=== PATIENT | male | born 1975 | race Caucasian/White ===

== ENCOUNTER 2016-06-25 17:13 | Emergency (ER) | payer MEDICAID ==
[2016-06-25 17:33] VITALS: BP 175/104
--- NOTE | 2016-06-25 18:19 | EDM.PDOC ---
ED HPI GENERAL MEDICAL PROBLEM - General Chief Complaint: Cardiovascular Problem Stated Complaint: SWOLLEN LEGS, UNABLE TO TAKE FULL BREATH Time Seen by Provider: 06/25/16 18:06 Source of Information: Reports: Patient History Limitations: Reports: No Limitations - History of Present Illness INITIAL COMMENTS - FREE TEXT/NARRATIVE: Patient is a 40-year-old male who presents to the ED complaining of increased swelling to his lower legs, distention to his abdomen, and inability to take a deep breath. States last night legs were fine. Awoke this with swollen ankles that have mildly decreased throughout the course of the day. Patient has been elevating his legs when able to reduce swelling. States he has no history of swelling like this previously. Since the onset he has some difficulty with taking a deep breath due to distention noted to his abdomen. He is mildly short of breath with exertion. He does have some mild chest discomfort along the upper left sternal border described as sharp, intermittent, worsened with taking a deep breath or palpation. He is mildly dizzy with ambulation but notes no syncope or presyncopal episodes. Denies any history of PE/DVT, orthopnea, PND , palpitations, nausea/vomiting, hemoptysis, nausea/vomiting, diaphoresis, lightheadedness, Alupent, dysuria, calf pain, or any additional complaints. Chest pain is 1/10. Patient has a past medical history of hypertension and anxiety. Current medications include: Verapamil 240 mg every day, and citalopram. Surgical history carpal tunnel syndrome, cholecystectomy. Patient has a long smoking history and has recently decreased 7-8 cigarettes per day. Denies any alcohol or recreational drug use. Patient has a history of first degree relative with heart disease. Patient denies diabetes or hypercholesteremia Onset: Gradual Duration: Constant, Improving Location: Reports: Other (see HPI) Severity: Mild Bilateral Leg Pain Score (Numeric/FACES): 5 - Related Data Allergies Allergy/AdvReac Type Severity Reaction Status Date / Time No Known Allergies Allergy Verified 06/25/16 17:29 Home Meds: Home Meds Citalopram [Celexa] 20 mg PO DAILY 10/30/15 [History] Verapamil HCl [Verapamil ER] 240 mg PO BEDTIME 06/25/16 [History] Past Medical History Cardiovascular History: Reports: Hypertension Psychiatric History: Reports: Anxiety, Depression - Past Surgical History GI Surgical History: Reports: Cholecystectomy Musculoskeletal Surgical History: Reports: Carpal Tunnel Social & Family History - Tobacco Use Smoking Status *Q: Current Every Day Smoker Years of Tobacco use: 20 Packs/Tins Daily: 0.5 - Caffeine Use Caffeine Use: Reports: None - Alcohol Use Days Per Week of Alcohol Use: 0 - Recreational Drug Use Recreational Drug Use: No - Living Situation & Occupation Living situation: Reports: , with Spouse, with Family Occupation: Employed ED ROS GENERAL - Review of Systems Review Of Systems: ROS reveals no pertinent complaints other than HPI. ED EXAM, GENERAL - Physical Exam Exam: See Below Exam Limited By: No Limitations General Appearance: Alert, WD/WN, No Apparent Distress Ears: Hearing Grossly Normal Nose: Normal Inspection Throat/Mouth: Normal Voice, No Airway Compromise Neck: Normal Inspection, Supple, Other (no JVD) Respiratory/Chest: No Respiratory Distress, Lungs Clear, Normal Breath Sounds, No Accessory Muscle Use, Chest Non-Tender Cardiovascular: Normal Peripheral Pulses, Regular Rate, Rhythm, No Murmur Peripheral Pulses: 2+: Radial (L), Radial (R), Posterior Tibial (L), Posterior Tibial (R) GI/Abdominal: Normal Bowel Sounds, Soft, Non-Tender, No Organomegaly, No Abnormal Bruit, No Mass, Other (mildly distended) Back Exam: Normal Inspection Extremities: Normal Inspection, Non-Tender, Normal Capillary Refill, Pedal Edema (1+ to the lower half of the lower leg bilaterally) Neurological: Alert, Oriented, CN II-XII Intact, Normal Cognition, No Motor/ Sensory Deficits Psychiatric: Normal Affect, Normal Mood Skin Exam: Warm, Dry, Intact, Normal Color Course - Vital Signs Last Recorded V/S: Last Vital Signs Temp 98.0 F 06/25/16 17:30 Pulse 72 06/25/16 17:30 Resp 20 06/25/16 17:30 BP 175/104 H 06/25/16 17:30 Pulse Ox 98 06/25/16 17:30 - Orders/Labs/Meds Orders: Active Orders 24 hr Category Date Time Status EKG Documentation Completion [RC] STAT Care 06/25/16 18:21 Active Peripheral IV Care [RC] . DIRECTED Care 06/25/16 18:21 Active Chest 2V [CR] Stat Exams 06/25/16 18:21 Taken Peripheral IV Insertion Adult [OM.PC] Stat Oth 06/25/16 18:21 Ordered Labs: Laboratory Tests 06/25/16 06/25/16 06/25/16 Range/Units 18:01 18:01 18:01 WBC 8.58 (4.23-9.07) K/mm3 RBC 3.94 L (4.63-6.08) M/mm3 Hgb 12.6 L (13.7-17.5) gm/L Hct 37.1 L (40.1-51.0) % MCV 94.2 H (79.0-92.2) fl MCH 32.0 (25.7-32.2) pg MCHC 34.0 (32.2-35.5) g/dl RDW Std Deviation 43.4 (35.1-43.9) fL Plt Count 276 (163-337) K/mm3 MPV 9.5 (9.4-12.3) fl Neut % (Auto) 52.8 (34.0-67.9) % Lymph % (Auto) 31.9 (21.8-53.1) % [place] % (Auto) 10.5 (5.3-12.2) % Eos % (Auto) 4.5 (0.8-7.0) Baso % (Auto) 0.2 (0.1-1.2) % Neut # (Auto) 4.52 (1.78-5.38) K/mm3 Lymph # (Auto) 2.74 (1.32-3.57) K/mm3 [place] # (Auto) 0.90 H (0.30-0.82) K/mm3 Eos # (Auto) 0.39 (0.04-0.54) K/mm3 Baso # (Auto) 0.02 (0.01-0.08) K/mm3 D-Dimer, Quantitative (0.19-0.59) mg/L Sodium 140 (136-145) mEq/L Potassium 3.8 (3.5-5.1) mEq/L Chloride 103 (98-107) mEq/L Carbon Dioxide 27 (21-32) mEq/L Anion Gap 13.8 (5-15) BUN 15 (7-18) mg/dL Creatinine 0.9 (0.7-1.3) mg/dL Est Cr Clr Drug Dosing 131.71 mL/min Estimated GFR (MDRD) > 60 (>60) mL/min BUN/Creatinine Ratio 16.7 (14-18) Glucose 95 (74-106) mg/dL Calcium 8.3 L (8.5-10.1) mg/dL Total Bilirubin 0.2 (0.2-1.0) mg/dL AST 17 (15-37) U/L ALT 30 (16-63) U/L Alkaline Phosphatase 79 (46-116) U/L Troponin I < 0.017 (0.00-0.056) ng/mL B-Natriuretic Peptide < 15 (0-100) pg/mL Total Protein 6.6 (6.4-8.2) g/dl Albumin 3.6 (3.4-5.0) g/dl Globulin 3.0 gm/dL Albumin/Globulin Ratio 1.2 (1-2) TSH 3rd Generation 1.052 (0.358-3.74) uIU/mL Urine Color (Yellow) Urine Appearance (Clear) Urine pH (5.0-8.0) Ur Specific [place] (1.005-1.030) Urine Protein (Negative) Urine Glucose (UA) (Negative) Urine Ketones (Negative) Urine Occult Blood (Negative) Urine Nitrite (Negative) Urine Bilirubin (Negative) Urine Urobilinogen (0.2-1.0) Ur Leukocyte Esterase (Negative) Urine RBC (0-5) /hpf Urine WBC (0-5) /hpf Ur Epithelial Cells Ur Squamous Epith Cells (0-5) /hpf Urine Bacteria (FEW) /hpf Urine Mucus (FEW) /hpf 06/25/16 06/25/16 Range/Units 18:31 18:36 WBC (4.23-9.07) K/mm3 RBC (4.63-6.08) M/mm3 Hgb (13.7-17.5) gm/L Hct (40.1-51.0) % MCV (79.0-92.2) fl MCH (25.7-32.2) pg MCHC (32.2-35.5) g/dl RDW Std Deviation (35.1-43.9) fL Plt Count (163-337) K/mm3 MPV (9.4-12.3) fl Neut % (Auto) (34.0-67.9) % Lymph % (Auto) (21.8-53.1) % [place] % (Auto) (5.3-12.2) % Eos % (Auto) (0.8-7.0) Baso % (Auto) (0.1-1.2) % Neut # (Auto) (1.78-5.38) K/mm3 Lymph # (Auto) (1.32-3.57) K/mm3 [place] # (Auto) (0.30-0.82) K/mm3 Eos # (Auto) (0.04-0.54) K/mm3 Baso # (Auto) (0.01-0.08) K/mm3 D-Dimer, Quantitative 0.41 (0.19-0.59) mg/L Sodium (136-145) mEq/L Potassium (3.5-5.1) mEq/L Chloride (98-107) mEq/L Carbon Dioxide (21-32) mEq/L Anion Gap (5-15) BUN (7-18) mg/dL Creatinine (0.7-1.3) mg/dL Est Cr Clr Drug Dosing mL/min Estimated GFR (MDRD) (>60) mL/min BUN/Creatinine Ratio (14-18) Glucose (74-106) mg/dL Calcium (8.5-10.1) mg/dL Total Bilirubin (0.2-1.0) mg/dL AST (15-37) U/L ALT (16-63) U/L Alkaline Phosphatase (46-116) U/L Troponin I (0.00-0.056) ng/mL B-Natriuretic Peptide (0-100) pg/mL Total Protein (6.4-8.2) g/dl Albumin (3.4-5.0) g/dl Globulin gm/dL Albumin/Globulin Ratio (1-2) TSH 3rd Generation (0.358-3.74) uIU/mL Urine Color Yellow (Yellow) Urine Appearance Clear (Clear) Urine pH 6.0 (5.0-8.0) Ur Specific [place] 1.010 (1.005-1.030) Urine Protein Negative (Negative) Urine Glucose (UA) Negative (Negative) Urine Ketones Negative (Negative) Urine Occult Blood Negative (Negative) Urine Nitrite Negative (Negative) Urine Bilirubin Negative (Negative) Urine Urobilinogen 0.2 (0.2-1.0) Ur Leukocyte Esterase Negative (Negative) Urine RBC Not seen (0-5) /hpf Urine WBC Not seen (0-5) /hpf Ur Epithelial Cells Not Reportable Ur Squamous Epith Cells Not seen (0-5) /hpf Urine Bacteria Rare (FEW) /hpf Urine Mucus Not seen (FEW) /hpf Meds: Medications Discontinued Medications Generic Name Dose Route Start Last Admin Trade Name Freq PRN Reason Stop Dose Admin Sodium Chloride 10 ml 06/25/16 18:21 06/25/16 18:41 Saline Flush FLUSH 10 ml ASDIRECTED PRN Administration Keep Vein Open - Re-Assessments/Exams Free Text/Narrative Re-Assessment/Exam: Vital Signs upon examination: BP 126/28, HR 83, SPO2 95%, RR 19 06/25/16 18:22 Ordered peripheral IV. Initial labs and studies include: CBC, chem 14, troponin, TSH, EKG, chest x-ray, D-Dimer, and UA. EKG sinus rhythm at a rate of 70, OR interval is 173, QTC is 409, early repolarization pattern noted. [address] Lunsford. No acute findings noted. Final interpretation pending. 06/25/16 19:56 labs reviewed: CBC essentially normal, d-dimer negative, 14 within normal limits, CRP negative, troponin negative, TSH within normal limits , UA was negative. Will discharge patient home with instructions for ankle swelling and atypical chest pain. Departure - Departure Time of Disposition: 19:57 Disposition: Home, Self-Care 01 Condition: good Clinical Impression: Atypical chest pain, Pedal edema Instructions: Edema Referrals: Leatha Lam NP [Primary Care Provider] - Forms: ED Department Discharge, Return to Work/School Form Additional Instructions: See your PCP this coming week if symptoms persist. Refrain from excess salt intake. Eat a well balanced diet. Exercise regularly. Elevate legs as needed to reduce swelling. Return to the E.D. for any new or worsening symptoms. - My Orders Last 24 Hours: My Active Orders 06/25/16 18:21 EKG Documentation Completion [RC] STAT Peripheral IV Care [RC] . DIRECTED Chest 2V [CR] Stat Peripheral IV Insertion Adult [OM.PC] Stat - Assessment/Plan Last 24 Hours: My Active Orders 06/25/16 18:21 EKG Documentation Completion [RC] STAT Peripheral IV Care [RC] . DIRECTED Chest 2V [CR] Stat Peripheral IV Insertion Adult [OM.PC] Stat
[2016-06-25] MEDS ORDERED: Sodium Chloride 0.9% 10 ML Syringe FLUSH PRN (18:21)
--- NOTE | 2016-06-27 07:40 | CR ---
Chest: Two views of the chest were obtained. Comparison: Previous chest x-ray of 06/18/13. Heart size and mediastinum are normal. Lungs are clear. Bony structures are within normal limits for the patient's age. Impression: 1. Nothing acute is identified on two-view chest x-ray. Diagnostic code #1
== END 2016-06-25 20:28 | disposition home or self-care (01) ==
LOC: JD.ED 17:13
DX: R60.0 Localized edema (principal); R07.89 Other chest pain; I10 Essential (primary) hypertension; F41.8 Other specified anxiety disorders; F17.210 Nicotine dependence, cigarettes, uncomplicated; Z04.9 Encounter for examination and observation for unspecified reason; Z79.899 Other long term (current) drug therapy
CPT/HCPCS: 36415; 71020; 80053; 81001; 83880; 84443; 84484; 85025; 85379; 93005; 99285; J7050; 99284

== ENCOUNTER 2017-06-27 05:43 | Emergency (ER) | payer BC ==
--- NOTE | 2017-06-27 06:51 | EDM.PDOC ---
ED HPI GENERAL MEDICAL PROBLEM - General Chief Complaint: Chest Pain Stated Complaint: CHEST PAIN Time Seen by Provider: 06/27/17 05:55 Source of Information: Reports: Patient History Limitations: Reports: No Limitations - History of Present Illness INITIAL COMMENTS - FREE TEXT/NARRATIVE: 41 y/o M with hx HTN, otherwise healthy, presents with chest pain. Started yesterday while at rest. Intermittent episodes last 10 minutes, no provoking or relieving factors. Pain is sharp, left sided, radiates towards neck. No SOB. No hx similar symptoms. No lower extremity swelling or pain. No fever/recent illness. No cough. No nausea/vomiting or feeling of burning in his abdomen or chest. He doesn't have the chest pain now. States he's been compliant with his anti-hypertensives. 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 Left Chest Pain Score (Numeric/FACES): 4 - Related Data Allergies Allergy/AdvReac Type Severity Reaction Status Date / Time No Known Allergies Allergy Verified 06/27/17 05:51 Home Meds: Home Meds Verapamil HCl [Verapamil ER] 240 mg PO BEDTIME 06/25/16 [History] FLUoxetine [PROzac] 20 mg PO DAILY 06/27/17 [History] Past Medical History Cardiovascular History: Reports: Hypertension Genitourinary History: Reports: Renal Calculus Psychiatric History: Reports: Anxiety, Depression Endocrine/Metabolic History: Reports: Obesity/BMI 30+ - Past Surgical History GI Surgical History: Reports: Cholecystectomy Musculoskeletal Surgical History: Reports: Carpal Tunnel, Other (See Below) Other Musculoskeletal Surgeries/Procedures:: left hand Social & Family History - Tobacco Use Smoking Status *Q: Current Every Day Smoker Years of Tobacco use: 20 Packs/Tins Daily: 0.5 Used Tobacco, but Quit: No - Caffeine Use Caffeine Use: Reports: Coffee - Recreational Drug Use Recreational Drug Use: No - Living Situation & Occupation Living situation: Reports: , with Spouse, with Family Occupation: Employed ED ROS GENERAL - Review of Systems Review Of Systems: See Below Constitutional: Denies: Fever HEENT: Reports: No Symptoms Respiratory: Denies: Shortness of Breath, Cough Cardiovascular: Reports: Chest Pain Endocrine: Reports: No Symptoms GI/Abdominal: Denies: Abdominal Pain : Denies: Flank Pain Musculoskeletal: Reports: No Symptoms. Denies: Leg Pain Skin: Reports: No Symptoms Neurological: Reports: No Symptoms Psychiatric: Reports: No Symptoms ED EXAM, GENERAL - Physical Exam Exam: See Below Exam Limited By: No Limitations General Appearance: Alert, WD/WN, No Apparent Distress Eye Exam: Bilateral Eye: Normal Inspection, PERRL Ears: Normal External Exam Nose: Normal Inspection Throat/Mouth: Normal Voice, No Airway Compromise Head: Atraumatic, Normocephalic Neck: Normal Inspection, Supple Respiratory/Chest: No Respiratory Distress, Lungs Clear, Normal Breath Sounds, No Accessory Muscle Use, Chest Non-Tender. No: Wheezing Cardiovascular: Normal Peripheral Pulses, Regular Rate, Rhythm, No Edema, No Murmur GI/Abdominal: Soft, Non-Tender, No Distention. No: Rebound Back Exam: Normal Inspection Extremities: Normal Inspection, No Pedal Edema. No: Leg Pain Neurological: Alert, Oriented, Normal Cognition, No Motor/Sensory Deficits Psychiatric: Normal Affect, Normal Mood Skin Exam: Warm, Dry, Intact, Normal Color, No Rash Course - Vital Signs Last Recorded V/S: Last Vital Signs Temp 36.4 C 06/27/17 05:48 Pulse 57 L 06/27/17 07:30 Resp 16 06/27/17 07:30 BP 152/91 H 06/27/17 07:30 Pulse Ox 98 06/27/17 07:30 - Orders/Labs/Meds Orders: Active Orders 24 hr Category Date Time Status EKG Documentation Completion [RC] ASDIRECTED Care 06/27/17 06:02 Active EKG 12 Lead [EK] Stat Ther 06/27/17 06:02 Ordered Labs: Laboratory Tests 06/27/17 06/27/17 Range/Units 06:30 06:30 WBC 7.53 (4.23-9.07) K/mm3 RBC 4.25 L (4.63-6.08) M/mm3 Hgb 13.4 L (13.7-17.5) gm/L Hct 41.0 (40.1-51.0) % MCV 96.5 H (79.0-92.2) fl MCH 31.5 (25.7-32.2) pg MCHC 32.7 (32.2-35.5) g/dl RDW Std Deviation 45.4 H (35.1-43.9) fL Plt Count 276 (163-337) K/mm3 MPV 9.4 (9.4-12.3) fl Neut % (Auto) 63.8 (34.0-67.9) % Lymph % (Auto) 21.6 L (21.8-53.1) % [place] % (Auto) 11.3 (5.3-12.2) % Eos % (Auto) 2.9 (0.8-7.0) Baso % (Auto) 0.1 (0.1-1.2) % Neut # (Auto) 4.80 (1.78-5.38) K/mm3 Lymph # (Auto) 1.63 (1.32-3.57) K/mm3 [place] # (Auto) 0.85 H (0.30-0.82) K/mm3 Eos # (Auto) 0.22 (0.04-0.54) K/mm3 Baso # (Auto) 0.01 (0.01-0.08) K/mm3 Sodium 137 (136-145) mEq/L Potassium 4.3 (3.5-5.1) mEq/L Chloride 104 (98-107) mEq/L Carbon Dioxide 29 (21-32) mEq/L Anion Gap 8.3 (5-15) BUN 20 H (7-18) mg/dL Creatinine 0.9 (0.7-1.3) mg/dL Est Cr Clr Drug Dosing 130.40 mL/min Estimated GFR (MDRD) > 60 (>60) mL/min BUN/Creatinine Ratio 22.2 H (14-18) Glucose 105 (74-106) mg/dL Calcium 8.4 L (8.5-10.1) mg/dL Total Bilirubin 0.2 (0.2-1.0) mg/dL AST 11 L (15-37) U/L ALT 23 (16-63) U/L Alkaline Phosphatase 93 (46-116) U/L Troponin I < 0.017 (0.00-0.056) ng/mL Total Protein 7.0 (6.4-8.2) g/dl Albumin 3.6 (3.4-5.0) g/dl Globulin 3.4 gm/dL Albumin/Globulin Ratio 1.1 (1-2) - Re-Assessments/Exams Free Text/Narrative Re-Assessment/Exam: 06/27/17 06:50 EKG shows NSR, <1mm ST elevation V2/V3 with contour suggestive of early repol, no reciprocal change, no significant T abnormality, no evidence of acute ischemia. CXR shows normal cardiac silhouette, no ptx, no acute abnormality. 06/27/17 06:56 Continues to be chest pain free. Because pain started yesterday and he is currently chest pain, free, I don't feel it's necessary to repeat cardiac enzymes. HR normal, SpO2 in high 90's. Departure - Departure Time of Disposition: 07:30 Disposition: Home, Self-Care 01 Clinical Impression: Chest pain at rest Instructions: Nonspecific Chest Pain, [id number] Referrals: Eli Lunsford [facility] [Primary Care Provider] - Forms: ED Department Discharge Additional Instructions: 1. Follow up with your primary care provider for further care, ideally this week if possible 2. Return to the ED for a recheck if you have worsening chest pain, difficulty breathing, or other concerning symptoms - My Orders Last 24 Hours: My Active Orders 06/27/17 06:02 EKG Documentation Completion [RC] ASDIRECTED EKG 12 Lead [EK] Stat - Assessment/Plan Last 24 Hours: My Active Orders 06/27/17 06:02 EKG Documentation Completion [RC] ASDIRECTED EKG 12 Lead [EK] Stat
[2017-06-27 07:52] VITALS: BP 152/91
--- NOTE | 2017-06-27 07:57 | CR ---
Chest: Two views of the chest were obtained. Comparison: Prior chest x-ray of 01/31/17. Heart size and mediastinum are normal. Lungs are clear with no acute parenchymal change. Slight anterior wedging of a midthoracic vertebral body is seen which appears stable. Minimal spurring is noted within the mid thoracic spine which is stable. Impression: 1. Incidental findings. Nothing acute is seen. Diagnostic code #2
== END 2017-06-27 07:30 | disposition home or self-care (01) ==
LOC: JD.ED 05:43
DX: R07.9 Chest pain, unspecified (principal); I10 Essential (primary) hypertension; F17.210 Nicotine dependence, cigarettes, uncomplicated; Z79.899 Other long term (current) drug therapy
CPT/HCPCS: 36415; 71046; 71046-26; 80053; 84484; 85025; 93005; 99285-25

== ENCOUNTER 2018-11-07 15:42 | Emergency (ER) | payer BC ==
[2018-11-07 16:09] VITALS: BP 162/100; PULSE 72
[2018-11-07] MEDS ORDERED: Sodium Chloride 0.9% 10 ML Syringe FLUSH PRN (16:22)
--- NOTE | 2018-11-07 17:16 | CR ---
Chest: Two views of the chest were obtained. Comparison: Prior chest x-ray of 06/27/17. Heart size is normal. Upper mediastinum is normal. Lungs are clear. Bony structures show mild disc space narrowing within the thoracic spine. Minimal anterior wedging is noted within the thoracic spine which is stable. Minimal scattered endplate spurring is also noted which is stable. Impression: 1. Nothing acute is seen on two-view chest x-ray. Diagnostic code #2
--- NOTE | 2018-11-07 17:43 | EDM.PDOC ---
ED HPI GENERAL MEDICAL PROBLEM - General Chief Complaint: Cardiovascular Problem Stated Complaint: BROUGHT BY CLINIC HIGH BP Time Seen by Provider: 11/07/18 16:01 Source of Information: Reports: Patient, Provider History Limitations: Reports: No Limitations - History of Present Illness INITIAL COMMENTS - FREE TEXT/NARRATIVE: The patient presents from our clinic for hypertension and chest pain. He has a history of hypertension and he is verapamil 240mg daily. He ran out about 2 months ago. He went to see Marley Banks for a refill. He told them that he is having chest pain at times. This has been going on for a few months. He has some shortness of breath with it. He does smoke. He has a family history of AL. He has never had a cardiac event. He has no fever, chills, cough, abdominal pain, nausea or vomiting. Onset: Gradual Duration: Week(s): Location: Reports: Chest Quality: Reports: Pressure Severity: Mild Improves with: Reports: None Worsens with: Reports: None Associated Symptoms: Reports: Chest Pain, Shortness of Breath. Denies: Cough, Fever/Chills, Headaches, Nausea/Vomiting Middle Chest Pain Score (Numeric/FACES): 2 - Related Data Allergies Allergy/AdvReac Type Severity Reaction Status Date / Time No Known Allergies Allergy Verified 11/07/18 17:01 Home Meds: Home Meds Verapamil HCl [Verapamil ER] 240 mg PO BEDTIME 06/25/16 [History] FLUoxetine [PROzac] 40 mg PO DAILY 06/27/17 [History] Verapamil HCl [Verapamil ER] 240 mg PO DAILY #60 cap24h.pel 11/07/18 [Rx] Past Medical History HEENT History: Reports: None Cardiovascular History: Reports: Heart Murmur, Hypertension Other Cardiovascular History: murmur until age 17 Respiratory History: Reports: None Genitourinary History: Reports: Renal Calculus Other Neuro History: partial onset seizures about 15 years ago Psychiatric History: Reports: Anxiety, Depression Endocrine/Metabolic History: Reports: Obesity/BMI 30+ Hematologic History: Reports: None Immunologic History: Reports: None Oncologic (Cancer) History: Reports: None Dermatologic History: Reports: None - Infectious Disease History Infectious Disease History: Reports: Chicken Pox, Influenza - Past Surgical History GI Surgical History: Reports: Cholecystectomy Musculoskeletal Surgical History: Reports: Carpal Tunnel, Other (See Below) Other Musculoskeletal Surgeries/Procedures:: left hand Social & Family History - Tobacco Use Smoking Status *Q: Current Every Day Smoker Years of Tobacco use: 25 Packs/Tins Daily: 0.5 - Caffeine Use Caffeine Use: Reports: Coffee - Recreational Drug Use Recreational Drug Use: No - Living Situation & Occupation Living situation: Reports: , with Spouse, with Family Occupation: Employed ED ROS GENERAL - Review of Systems Review Of Systems: See Below Constitutional: Reports: No Symptoms HEENT: Reports: No Symptoms Respiratory: Reports: Shortness of Breath Cardiovascular: Reports: Chest Pain Endocrine: Reports: No Symptoms GI/Abdominal: Reports: No Symptoms : Reports: No Symptoms Musculoskeletal: Reports: No Symptoms ED EXAM, GENERAL - Physical Exam Exam: See Below Exam Limited By: No Limitations General Appearance: Alert, No Apparent Distress Ears: Normal External Exam Nose: Normal Inspection Head: Atraumatic, Normocephalic Neck: Normal Inspection Respiratory/Chest: No Respiratory Distress, Lungs Clear, Normal Breath Sounds Cardiovascular: Regular Rate, Rhythm, No Edema, No Murmur GI/Abdominal: Soft, Non-Tender, No Organomegaly, No Mass Back Exam: Normal Inspection Extremities: Normal Inspection EKG INTERPRETATION EKG Date: 11/07/18 Time: 16:24 Rhythm: NSR Rate (Beats/Min): 70 [place]: Normal P-Wave: Present QRS: Normal ST-T: Elevated (Slight ST elevation in the anterior leads) QT: Normal Comparison: No Change EKG Interpretation Comments: Q waves in the inferior leads Course - Vital Signs Last Recorded V/S: Last Vital Signs Temp 98.4 F 11/07/18 16:05 Pulse 72 11/07/18 16:05 Resp 14 11/07/18 16:05 BP 162/100 H 11/07/18 16:05 Pulse Ox 99 11/07/18 16:05 - Orders/Labs/Meds Orders: Active Orders 24 hr Category Date Time Status Cardiac Monitoring [RC] . DIRECTED Care 11/07/18 16:22 Active EKG Documentation Completion [RC] STAT Care 11/07/18 16:23 Active Peripheral IV Care [RC] . DIRECTED Care 11/07/18 16:23 Active Sodium Chloride 0.9% [Saline Flush] Med 11/07/18 16:22 Active 10 ml FLUSH ASDIRECTED PRN Peripheral IV Insertion Adult [OM.PC] Stat Oth 11/07/18 16:22 Ordered Medication Orders Sodium Chloride (Saline Flush) 10 ml FLUSH ASDIRECTED PRN PRN Reason: Keep Vein Open Labs: Laboratory Tests 11/07/18 11/07/18 Range/Units 16:33 16:33 WBC 9.34 H (4.23-9.07) K/mm3 RBC 4.01 L (4.63-6.08) M/mm3 Hgb 12.6 L (13.7-17.5) gm/dl Hct 37.9 L (40.1-51.0) % MCV 94.5 H (79.0-92.2) fl MCH 31.4 (25.7-32.2) pg MCHC 33.2 (32.2-35.5) g/dl RDW Std Deviation 44.1 H (35.1-43.9) fL Plt Count 274 (163-337) K/mm3 MPV 9.8 (9.4-12.3) fl Neut % (Auto) 60.0 (34.0-67.9) % Lymph % (Auto) 27.2 (21.8-53.1) % [place] % (Auto) 9.2 (5.3-12.2) % Eos % (Auto) 3.3 (0.8-7.0) Baso % (Auto) 0.2 (0.1-1.2) % Neut # (Auto) 5.60 H (1.78-5.38) K/mm3 Lymph # (Auto) 2.54 (1.32-3.57) K/mm3 [place] # (Auto) 0.86 H (0.30-0.82) K/mm3 Eos # (Auto) 0.31 (0.04-0.54) K/mm3 Baso # (Auto) 0.02 (0.01-0.08) K/mm3 Sodium 142 (136-145) mEq/L Potassium 4.0 (3.5-5.1) mEq/L Chloride 105 (98-107) mEq/L Carbon Dioxide 28 (21-32) mEq/L Anion Gap 13.0 (5-15) BUN 17 (7-18) mg/dL Creatinine 0.9 (0.7-1.3) mg/dL Est Cr Clr Drug Dosing 124.31 mL/min Estimated GFR (MDRD) > 60 (>60) mL/min BUN/Creatinine Ratio 18.9 H (14-18) Glucose 109 H (74-106) mg/dL Calcium 8.5 (8.5-10.1) mg/dL Total Bilirubin 0.2 (0.2-1.0) mg/dL AST 10 L (15-37) U/L ALT 21 (16-63) U/L Alkaline Phosphatase 87 (46-116) U/L Troponin I < 0.017 (0.00-0.056) ng/mL Total Protein 6.7 (6.4-8.2) g/dl Albumin 3.6 (3.4-5.0) g/dl Globulin 3.1 gm/dL Albumin/Globulin Ratio 1.2 (1-2) Meds: Medications Generic Name Dose Route Start Last Admin Trade Name Freq PRN Reason Stop Dose Admin Sodium Chloride 10 ml 11/07/18 16:22 Saline Flush FLUSH ASDIRECTED PRN Keep Vein Open - Re-Assessments/Exams Free Text/Narrative Re-Assessment/Exam: 11/07/18 17:43 I ordered an IV saline lock, EKG, CXR and labs. His EKG shows a NSR and CXR looks good. His CBC and CMP look good. His troponin is negative. Departure - Departure Time of Disposition: 17:50 Disposition: Home, Self-Care 01 Condition: Good Clinical Impression: Chest pain Qualifiers: Chest pain type: unspecified Qualified Code(s): R07.9 - Chest pain, unspecified Hypertension Qualifiers: Hypertension type: essential hypertension Qualified Code(s): I10 - Essential ( primary) hypertension Prescriptions: Verapamil HCl [Verapamil ER] 240 mg PO DAILY #60 cap24h.pel Referrals: Katharine Banks PA-C [Primary Care Provider] - 1 Week Forms: ED Department Discharge Additional Instructions: Take the verapamil daily. Follow up with Marley Banks. I feel you need a stress test. Stop smoking. Please return if you are worse. - My Orders Last 24 Hours: My Active Orders 11/07/18 16:22 Cardiac Monitoring [RC] . DIRECTED Sodium Chloride 0.9% [Saline Flush] 10 ml FLUSH ASDIRECTED PRN Peripheral IV Insertion Adult [OM.PC] Stat 11/07/18 16:23 EKG Documentation Completion [RC] STAT Peripheral IV Care [RC] . DIRECTED - Assessment/Plan Last 24 Hours: My Active Orders 11/07/18 16:22 Cardiac Monitoring [RC] . DIRECTED Sodium Chloride 0.9% [Saline Flush] 10 ml FLUSH ASDIRECTED PRN Peripheral IV Insertion Adult [OM.PC] Stat 11/07/18 16:23 EKG Documentation Completion [RC] STAT Peripheral IV Care [RC] . DIRECTED
== END 2018-11-07 18:13 | disposition home or self-care (01) ==
LOC: JD.ED 15:42
DX: R07.9 Chest pain, unspecified (principal); I10 Essential (primary) hypertension; F17.210 Nicotine dependence, cigarettes, uncomplicated; Z90.49 Acquired absence of other specified parts of digestive tract; E66.9 Obesity, unspecified; Z79.899 Other long term (current) drug therapy; F41.9 Anxiety disorder, unspecified; F32.9 Major depressive disorder, single episode, unspecified
CPT/HCPCS: 36415; 71046; 71046-26; 80053; 84484; 85025; 93005; 93010; 99284; 99284-25

== ENCOUNTER 2022-03-17 03:20 | Emergency (ER) | payer MEDICAID ==
[2022-03-17] MEDS ORDERED: Aspirin 81 MG Tab.Chew PO STA (04:05)
[2022-03-17] MEDS ORDERED: Metoprolol Tartrate 5 MG/5 ML SDV IVPUSH ONE ×2 (04:05→04:57)
[2022-03-17] MEDS ORDERED: Potassium Chloride 20 MEQ Tab.ER PO ONE (04:55)
[2022-03-17 05:16] LABS: CORONAVIRUS COVID-19 NAA NEGATIVE (NEGATIVE)
[2022-03-17] MEDS ORDERED: Verapamil 120 MG Cap.ER PO STA (06:40)
[2022-03-17 07:22] VITALS: BP 174/120; PULSE 78
== END 2022-03-17 07:18 | disposition home or self-care (01) ==
LOC: JD.ED 03:20
DX: R07.89 Other chest pain (principal); E87.6 Hypokalemia; I10 Essential (primary) hypertension; F17.210 Nicotine dependence, cigarettes, uncomplicated; E66.9 Obesity, unspecified; Z68.37 Body mass index [BMI] 37.0-37.9, adult; Z20.822 Contact with and (suspected) exposure to COVID-19
CPT/HCPCS: 0241U; 36415; 71045; 80053; 83735; 83880; 84484; 85025; 85379; 85610; 85730; 93005; 96374; 96376; 99285; A9270; J3490; 93010; 99284